=== PATIENT | female | born 1945 | race Caucasian/White ===

== ENCOUNTER 2019-03-23 08:11 | Emergency (ER) | payer OTHER, MEDICAID ==
[~2019-03-23] VITALS: Ht 157.5 cm; Wt 67.9 kg
[2019-03-23 08:16] VITALS: Ht 157.5 cm; Wt 67.9 kg
[2019-03-23] MEDS ORDERED: KETOROLAC 15 MG INJ IV STA (09:34)
[2019-03-23] MEDS ORDERED: DIPHENHYDRAMINE 50 MG INJ IV ONE (10:00)
[2019-03-23] MEDS ORDERED: METOCLOPRAMIDE 10 MG INJ IV ONE (10:00)
[2019-03-23] MEDS ORDERED: SOD CHLORIDE 0.9% 1,000 ML IV ONE (10:00)
[2019-03-23] MEDS ORDERED: AMLO5TAB4 PO (10:13)
[2019-03-23] MEDS ORDERED: HYDR25TA6 PO (10:13)
[2019-03-23] MEDS ORDERED: SIMV20TA PO (10:13)
[2019-03-23] MEDS ORDERED: AZEL137S9 NASAL (10:15)
[2019-03-23] MEDS ORDERED: MONT10TA24 PO (10:15)
[2019-03-23] MEDS ORDERED: PYRI60TA9 PO (10:16)
[2019-03-23] MEDS ORDERED: CETI10TA19 PO (10:19)
[2019-03-23] MEDS ORDERED: ACET-141 PO (10:19)
--- NOTE | 2019-03-23 12:17 | ERD ---
ER Documentation Chief Complaint Chief Complaint POOR APPETITE, HEADACHE, LOOSING BALANCE W/NAUSEA X3 DAYS HPI This is a 73-year-old female with a past medical history of hypertension, hyp erlipidemia, myasthenia gravis, frequent migraines who is presenting with feeling generally unwell, occasional lightheadedness with a slight fever. The patient endorses a poor appetite. She is also had a mild frontal headache with and nausea. She denies any neck stiffness or pain. She denies any earache or sore throat. She denies any sinus pressure. She denies any cough or co ngestion. She denies chest pain or trouble breathing. She denies any specific abdominal pain. She has not had any constipation or diarrhea. She denies any confusion. She denies any focal deficits. She denies any weakness or numbness or tingling to the face or extremities. ROS All systems reviewed and are negative except as per history of present illness. Medications Home Meds Reported Medications Cetirizine Hcl* (Cetirizine Hcl*) 10 Mg Tablet, 10 MG PO DAILY, #30 TAB 03/23/19 Acetaminophen* (Acetaminophen*) 500 MG Extra Strength Tablet, 500 MG PO NE EDED PRN for PAIN AND OR ELEVATED TEMP, TAB 03/23/19 Pyridostigmine [place]* (Pyridostigmine [place]*) 60 Mg Tablet, 60 MG PO QID, TAB 03/23/19 Montelukast Sodium* (Montelukast Sodium*) 10 Mg Tablet, 10 MG PO QHS, #30 TAB 03/23/19 Azelastine Hcl* (Azelastine Hcl*) 137 Mcg/0.137 Ml Bryant.pump, 2 SPRAYS NASAL DAILY PRN for NEEDED, #1 EA TO EACH NOSTRIL 03/23/19 Hydrochlorothiazide* (Hydrochlorothiazide*) 25 Mg Tab, 25 MG PO DAILY, #30 TAB 03/23/19 Amlodipine Besylate* (Norvasc*) 5 Mg Tablet, 5 MG PO DAILY, TAB 03/23/19 Simvastatin* (Zocor*) 20 Mg Tablet, 20 MG PO QHS, #30 TAB 03/23/19 Allergies Allergies: Coded Allergies: No Known Allergy (Unverified , 03/23/19) PMhx/Soc Medical and Surgical Hx: pt denies Surgical Hx History of Surgery: No Anesthesia Reaction: No Hx Neurological Disorder: Yes (MYASTHENIA GRAVIS) Hx Cardiac Disorders: Yes (HTN) Hx Psychiatric Problems: No Hx Alcohol Use: No Hx Substance Use: No Hx Tobacco Use: No Smoking Status: Never smoker FmHx Family History: No diabetes Physical Exam Vitals Vital Signs Date Temp Pulse Resp B/P (MAP) Pulse Ox O2 O2 Flow FiO2 Time Delivery Rate 03/23/19 100.0 84 18 129/68 96 Room Air 08:29 (88) 03/23/19 100.3 90 18 132/64 97 08:16 (86) Physical Exam Const: No apparent distress, well-developed, well-nourished Head: Normocephalic, Atraumatic Eyes: Normal Conjunctiva. Extraocular movements intact. Pupils equal, round and reactive to light ENT: Normal External Ears, Nose and Mouth. Neck: Full range of motion. No meningismus. Resp: Clear to auscultation bilaterally, No wheezes, rales or rhonchi Cardio: Regular rate and rhythm. No murmurs, rubs or gallops Abd: Soft, non tender, non distended. Normal bowel sounds Skin: No petechiae or rashes Back: No midline tenderness. No CVA tenderness Ext: No cyanosis, or edema Neur: Awake and alert, oriented 4. Cranial nerves intact. No facial droop. Normal strength, sensation and coordination. Psych: Normal Mood and Affect Results 24 hrs Current Medications Medications Dose Sig/Ramu Start Time Status Last (Trade) Ordered Route PRN Stop Time Admin Dose Reason Admin Sodium 1,000 ml @ Q1H ONCE 03/23/19 DC 03/23/19 Chloride 1,000 mls/hr IV 10:00 10:26 03/23/19 10:59 10 mg ONCE ONCE 03/23/19 DC 03/23/19 Metoclopramid IV 10:00 10:25 e HCl 03/23/19 10:01 (Reglan) Ketorolac 15 mg ONCE STAT 03/23/19 DC 03/23/19 Tromethamine IV 09:34 10:25 (Toradol) 03/23/19 09:41 25 mg ONCE ONCE 03/23/19 DC 03/23/19 Diphenhydrami IV 10:00 10:25 ne HCl 03/23/19 10:01 (Benadryl) Procedures/MDM MDM The patient's presentation warrants further investigation. Previous medical records, if available, were reviewed. The patient's primary presentation was for her headache. Differential diagnosis includes migraine, tension headache, cluster headache. The patient has no focal deficits. The neurologic exam is reassuring. I have decreased suspicion for cerebral ischemia. There was no trauma or injury. There is no personal or family history of cerebral aneurysm. This is not the worst headache of the patient's life. It was not acutely severe. It is been progressive in nature. I have decreased suspicion for SAH or other ICH. I have low suspicion for temporal arteritis, cavernous venous thrombosis, subdural hematoma, epidural hematoma, meningitis. The patient also has an elevated temperature, although she did not have a fever above 100.4 Fahrenheit. I do anticipate a viral syndrome. I do not see evidence of otitis media or pharyngitis or sinusitis or pneumonia. I do not see evidence of cellulitis or abscess or other soft tissue infection. I have low suspicion for a bacterial infection. An elevated temperature could also be related to an exacerbated episode of her autoimmune condition. That said, the patient's other vital signs are stable. I do not believe the patient is septic. I do not believe the patient would benefit from a septic work-up. I do not believe the patient would benefit from antibiotics. TREATMENT/DISPOSITION The patient was treated with IV fluids, Reglan, Benadryl and Toradol with significant improvement of her symptoms. The medications were reviewed prior to administration given her history of myasthenia gravis. DISCHARGE Upon reevaluation of the patient, symptoms have improved. No emergent diagnoses were identified. At this time, I feel that the patient stable for discharge. The patient was instructed to follow-up with a primary care physician in 1-3 days. The patient will be given strict precautions with which to return to the emergency department. Prescriptions: None The patient's blood pressure was elevated at greater than 120/80 while in the e mergency department. The patient was otherwise stable with no evidence of hypertensive urgency or emergency. The patient does not require admission for blood pressure control. I have discussed with the patient the risks of hypertension. I have instructed the patient to return to the ER for any new or worsening symptoms including chest pain, shortness of breath, headache, blurred vision, confusion, nausea, vomiting or LOC. I have advised the patient to follow up with the primary care physician for outpatient monitoring and treatment for hypertension in 1-3 days. Disclaimer: Inadvertent spelling and grammatical errors are likely due to EHR/dictation software use and do not reflect on the overall quality of patient care. Note that the electronic time recorded on this note does not necessarily reflect the actual time of the patient encounter. Departure Diagnosis: Primary Impression: Headache Headache type: unspecified Headache chronicity pattern: acute headache Intractability: not intractable Qualified Codes: R51 - Headache Additional Impressions: Myalgia Viral syndrome Elevated temperature Condition: Stable Patient Instructions: Fever Control (Adult), Myalgias, Myasthenia Gravis, Self- Care for Headaches, Viral Syndrome (Adult) Additional Instructions: Thank you for for coming to [facility] for your care today. Please ask your nurse or provider if you have questions about your care today and do not leave until all your questions have been answered. Please use any medications given as directed and follow-up with your doctor (or the doctor you were referred to) in the next 1-3 days. If you do not have a primary care doctor you may follow up at the [facility] or [facility] clinic (listed below). You may also use motrin and tylenol as needed for fever and/or pain unless instructed otherwise by your provider or nurse. Indications for more urgent follow-up have been discussed, but you may return to the Emergency Department at ANY time for any worrisome or worsening symptoms. If you have abdominal pain, please know that no test or exam you received is perfect and you should follow up within 8 hours for continued pain. If you had any imaging studies today, such as an X-Ray or CT Scan, these studies will be reviewed later by a radiologist. You will be called if there are important findings that were not identified today, so make sure the contact information you provided at registration is correct. If you received any narcotic pain control medicine today, such as Vicodin, Morphine or Dilaudid, your coordination and judgment may be affected for a number of hours. Please do not drive or operate heavy machinery, and you may want someone to assist you at home. If you were given a prescription for narcotic medication, be aware that it is very addictive- use sparingly and only if necessary. PLEASE SEEK FURTHER EVALUATION AND MANAGEMENT AT YOUR DOCTORS OFFICE WITHIN THE NEXT 1-3 DAYS. IT IS YOUR RESPONSIBILITY TO MAKE AN APPOINTMENT FOR FOL-UP CARE. IF YOU HAVE A PRIMARY DOCTOR, PLEASE CALL THEIR OFFICE TO SCHEDULE AN APPOINTMENT FOR FOLLOW UP. IF YOU DO NOT HAVE A PRIMARY DOCTOR YOU CAN CALL OUR PHYSICIAN REFERRAL HOTLINE AT IF YOU CAN NOT AFFORD TO SEE A PHYSICIAN YOU CAN CHOSE FROM THE FOLLOWING [facility] CLINICS: [facility] [address] [facility] [address] [facility] [facility] [address] [facility] [address] [facility] [address] [facility]. [facility]. [address] TASIA DOS SANTOS MD Mar 23, 2019 12:15
[2019-03-23 12:22] VITALS: BP 107/66; PULSE 73; RESP 18
== END 2019-03-23 12:26 | disposition home or self-care (01) ==
LOC: E/R 08:11
DX: B34.9 Viral infection, unspecified (principal); I10 Essential (primary) hypertension; M79.10 Myalgia, unspecified site
CPT/HCPCS: 96374; 96375; 99284; J1200; J1885; J2765; J7030